=== PATIENT | female | born 1955 | race Caucasian/White ===

== ENCOUNTER 2020-09-26 06:37 | Day surgery (SDC) | payer OTHER ==
[~2020-09-26] VITALS: Ht 160 cm; Wt 61.7 kg
[2020-09-26] MEDS ORDERED: fentaNYL citrate 0.05 MG/ML VIAL ONE (08:50)
[2020-09-26] MEDS ORDERED: LIDOCAINE 2% 100 MG/5 ML UJET TP ONE ×3 (08:50→09:40)
[2020-09-26] MEDS ORDERED: MIDAZOLAM 5 MG/5 ML VIAL ONE (09:34)
[2020-09-26] MEDS ORDERED: fentaNYL citrate 0.05 MG/ML VIAL IVP ONE ×2 (09:40→15:50)
[2020-09-26] MEDS ORDERED: MIDAZOLAM 2 MG/2 ML VIAL IVP ONE ×2 (09:40→15:50)
== END 2020-09-26 11:53 | disposition home or self-care (01) ==
LOC: MDS 06:37 → MMU 06:40 → MDS 11:53
PROVIDERS: ATTEND Internal Medicine Gastroenterology
DX: Z12.11 Encounter for screening for malignant neoplasm of colon (principal); Z86.010 Personal history of colon polyps; J45.909 Unspecified asthma, uncomplicated; M19.90 Unspecified osteoarthritis, unspecified site; Z79.899 Other long term (current) drug therapy
CPT/HCPCS: 45378; J2250; J3010